=== PATIENT | female | born 1990 | race Caucasian/White ===

== ENCOUNTER → 2019-10-11 07:48 | Outpatient (CLI) | payer BC, SELFPAY ==
--- NOTE | 2019-10-11 07:51 | US_ITS ---
PROCEDURE: US GALLBLADDER CLINICAL INDICATION: VOMITING Vomiting after eating COMPARISON: No exams were available for comparison FINDINGS: Pancreas: Unremarkable/Not well seen Liver: Unremarkable. There is appropriate direction of blood flow within a non dilated portal vein. Right kidney: Unremarkable appearing. No hydronephrosis. Gallbladder: No stones are evident. There is no gallbladder wall thickening. Common duct is normal in diameter. IMPRESSION: Negative gallbladder ultrasound. No stones evident. Dictated by: Ramesh Burnham MD 10/11/2019 09:10 Electronically signed by Ramesh Burnham MD in [place] 10/11/2019 09:10
== END ==
PROVIDERS: PCP Family Medicine; Visit Provider Nurse Practitioner
DX: R11.10 Vomiting, unspecified (principal)
CPT/HCPCS: 76705

== ENCOUNTER 2020-01-20 17:14 | Emergency (ER) | payer BC, SELFPAY ==
[2020-01-20 17:57] VITALS: BP 114/74; PULSE 85; RESP 20; TEMP 37.1; O2SAT 99; BMI 27.4
[2020-01-20 18:08] LABS: UTC Strep Screen (Rapid) Negative (Negative)
[2020-01-20 18:09] LABS: UTC Influenza A Antigen Negative (Negative); UTC Influenza B Antigen Negative (Negative)
--- NOTE | 2020-01-20 18:12 | HMH.EDUTC ---
[facility] [place] Clinical Impression: Sinusitis Qualifiers: Sinusitis location: unspecified location Chronicity: unspecified Qualified Code(s): J32.9 - Chronic sinusitis, unspecified Disposition: Home, Self-Care Condition on Discharge: Good Instructions: Sinusitis, Sinus Headache, DI for Sinusitis Additional Instructions: *Monitor Temp, Over the counter Motrin or Tylenol as directed/as needed Tylenol every 4 hours and Motrin every 6 hours (as long as your family doctor has told you that you can take it) for fever or pain. and straight to ER if unable to lower temp less than 101.0 after medication given *Warm salt water gargles may help to soothe the throat *Throat Lozenges *Warm fluids like tea with honey may help to soothe the throat *Sleep elevated *Humidifier/Vaporizer *Flonase 2 sprays in each nostril daily but be aware that it may take 2-3 days before you notice improvement Take medication as prescribed Your throat swab was sent for culture. Those results are typically sent to your primary care. Be sure to follow up in 2-3 days with your family doctor/primary care physician if no improvement so they can review those result and treat if necessary. If you don?t have a primary care doctor, I recommend you get one but in the mean time, you will have to return to a walk in clinic Follow up IMMEDIATELY for new or worsening symptoms or no Noticeable improvement over the next 48-72 hours. 911 for difficulty breathing or swallowing Prescriptions: predniSONE [Deltasone 10mg tablet] 10 mg PO BID 5 Days #10 tab Transmission Status: Pending to [facility] # [id number] Fluticasone Propionate [Flonase 50mcg nasal spray 16gm] 1 spr NS DAILY #1 bottle Transmission Status: Pending to [facility] # [id number] Azithromycin [Z-Dung 250mg Tab] 250 mg PO DIRECTED #6 tab Transmission Status: Pending to [facility] # [id number] Referrals: Kelly Westbrook [Primary Care Provider] - As needed Time of Disposition: 18:21 Medical Decision Making - Wilian Inquiry Pt receiving controlled substance: No Wilian was queried for this patient: No Vital Signs: 01/20/20 17:57 Temperature 98.7 F Temperature Source Oral Pulse Rate [Right Brachial] 85 Respiratory Rate 20 Blood Pressure [Right Arm] 114/74 Blood Pressure Mean [Right Arm] 87 Blood Pressure Source [Right Arm] Automatic Cuff Blood Pressure Position [Right Arm] Sitting 02 Sat by Pulse Oximetry 99 Oxygen Delivery Method Room Air - Lab Data Lab results reviewed: Yes: I reviewed the patient's lab results. Lab Results 01/20/20 17:49: Influenza Type A Ag Negative, Influenza Type B Ag Negative 01/20/20 17:49: Strep Scn Rapid Clinic Negative Orders (Tests/Meds): ORDERS Category Date Time Status Strep Screen Confirmation Stat Micro 01/20/20 17:49 Received [facility] [place] - General Stated complaint: nausea low grade fever aches Time Seen by Provider: 01/20/20 18:13 Mode of Arrival: Ambulatory Source of Information: Patient Limitations: No Limitations Description of Symptoms (Recalled from Triage Doc. by RN): PATIENT C/O VOMITING, SORE THROAT, CHILLS AND SINUS PRESSURE THAT STARTED THIS AFTERNOON HEENT Symptoms (Recalled from RN notes): Yes Resp Symptoms (Recalled from RN notes): No Skin Symptoms (Recalled from RN notes): No MS Symptoms (Recalled from RN notes): No Functional Status (Recalled from RN notes): WNL - History of Present Illness Provider Complaint: Paitent states that she has been having sinus pain and pressure for over a week and today she was having body aches, chills and nausea States that she feels like she has a sinus infection or the flu States that earlier she had an eppisode of vomiting and thinks it was because of drainage - Related Data Previous Rx's Medication Instructions Recorded Albuterol Sulfate [Albuterol 2.5 mg IH Q4-6H PRN #25 neb 08/25/19 0.083% 2.5mg/3mL neb] Azithromycin [Z-Dung 250mg Tab*] 250 mg PO UD DOSE PK #6 tab 08/25/19 Fluticas
[2020-01-20 18:22] VITALS: BP 114/74; PULSE 85; RESP 20; TEMP 37.1; O2SAT 99
== END 2020-01-20 18:25 | disposition home or self-care (01) ==
PROVIDERS: Emergency Provider Nurse Practitioner; PCP Family Medicine
DX: J32.9 Chronic sinusitis, unspecified (principal); F17.210 Nicotine dependence, cigarettes, uncomplicated
CPT/HCPCS: 87804; 87880; 99202

== ENCOUNTER 2020-05-03 19:23 | Emergency (ER) | payer BC, SELFPAY ==
[2020-05-03 19:33] VITALS: BP 104/78; PULSE 101; RESP 15; TEMP 37.2; O2SAT 99; BMI 26.5
--- NOTE | 2020-05-03 19:38 | HMH.EDUTC ---
[facility] [place] Clinical Impression: Vomiting and diarrhea Disposition: Home, Self-Care Condition on Discharge: Good Instructions: Diarrhea, DI for Nausea -- Adult, Nausea and Vomiting-Adult, Preventing the Spread of Coronavirus Discharge Instructions Additional Instructions: ? Avoid fruit juices, as these do not replace minerals and can actually increase diarrhea. ? Children and adults can use sports drinks to replenish electrolytes. Younger children and infants should use products formulated for children, like oral rehydration solutions. ? Eat food in small amounts and let your stomach recover. ? Get lots of rest. You may feel tired or weak. ? No greasy or fried foods for the next 24-48 hours BRAT diet Bananas Rice Apples and [place] ? Make sure to drink plenty of liquids ? Return if needed ? Straight to ER if any life threatening symptoms ? Zofran as prescribed ? You was given an outpatient order for diarrhea panel, please collect specimen and bring back to outpatient lab then call back to the [facility] or follow up with family doctor for results Follow up with family doctor in the next 48-72 hours if no You was tested for today for COVID19 your test result should be back later this evening, you may call back later this evening to see if your test results are back and the result You was given a handout with instructions for Self Quarantine and Self isolation for while you wait on test results and what to do if they are positive Prescriptions: Ondansetron [Zofran 4mg ODT] 4 mg PO TIDP PRN #10 tab PRN Reason: Vomiting Transmission Status: Pending to [facility] # [id number] Referrals: Kelly Westbrook [Primary Care Provider] - As needed Forms: Work/School Release Time of Disposition: 21:01 Medical Decision Making - Wilian Inquiry Pt receiving controlled substance: No Wilian was queried for this patient: No Vital Signs: 05/03/20 19:33 Temperature 98.9 F Temperature Source Oral Pulse Rate [Right Brachial] 101 H Respiratory Rate 15 Blood Pressure [Right Arm] 104/78 L Blood Pressure Mean [Right Arm] 86 Blood Pressure Source [Right Arm] Automatic Cuff Blood Pressure Position [Right Arm] Sitting 02 Sat by Pulse Oximetry 99 Oxygen Delivery Method Room Air - Lab Data Lab results reviewed: Yes: I reviewed the patient's lab results. Orders (Tests/Meds): ED MEDICATIONS Generic Name Dose Route Start Last Admin Trade Name Freq PRN Reason Stop Dose Admin Sodium Chloride 1,000 mls @ 999 mls/hr 05/03/20 20:00 05/03/20 20:03 Sod Chlor 0.9% 1000ml Bag IV 05/03/20 21:00 999 mls/hr .Q1H1M SADIA Administration Discontinued Medications Generic Name Dose Route Start Last Admin Trade Name Irasema PRN Reason Stop Dose Admin Ondansetron HCl 4 mg 05/03/20 19:39 05/03/20 19:50 Ondansetron 4mg Odt SL 05/03/20 19:40 4 mg ONCE ONE Administration ORDERS Category Date Time Status Covid-19 Nasal PCR ([facility]) Routine Lab 05/03/20 19:48 Received Medical Decision Narrative: Patient states that she is feeling much better after bolus and no vomiting after zofran and able to keep down sprite [facility] [place] HPI - General Stated complaint: MEYERS,V&D,Abd Pain Time Seen by Provider: 05/03/20 19:38 Mode of Arrival: Ambulatory Source of Information: Patient Limitations: No Limitations Description of Symptoms (Recalled from Triage Doc. by RN): PATIENT C/O VOMITING, HEADACHE, NAUSEA AND DIARRHEA X 2-3 DAYS HEENT Symptoms (Recalled from RN notes): Yes Resp Symptoms (Recalled from RN notes): No Skin Symptoms (Recalled from RN notes): No MS Symptoms (Recalled from RN notes): No Functional Status (Recalled from RN notes): WNL - History of Present Illness Provider Complaint: Patient states that she has been not feeling well for the last couple of days and not been able to work States that she has had a headache, body aches, chills, N/V/D States that today she was still having some nausea and vomiting last had diarrhea this morning
[2020-05-03 21:06] VITALS: BP 103/73; PULSE 78; RESP 16; O2SAT 100
[2020-05-03 21:08] LABS: UTC Influenza A Antigen Negative (Negative)
[2020-05-03 21:09] LABS: UTC Influenza B Antigen Negative (Negative)
[2020-05-03 21:10] LABS: UTC Strep Screen (Rapid) Negative (Negative)
[2020-05-03 21:12] VITALS: BP 103/73; PULSE 85; RESP 16; TEMP 37.2; O2SAT 100
== END 2020-05-03 21:15 | disposition home or self-care (01) ==
PROVIDERS: Emergency Provider Nurse Practitioner; PCP Family Medicine
DX: R11.10 Vomiting, unspecified (principal); R19.7 Diarrhea, unspecified; F17.210 Nicotine dependence, cigarettes, uncomplicated
CPT/HCPCS: 87804; 87880; 96365; 99202; U0003

== ENCOUNTER 2020-05-11 21:07 | Emergency (ER) | payer BC, SELFPAY ==
[2020-05-11 21:12] VITALS: BP 110/59; PULSE 70; RESP 16; TEMP 36.8; O2SAT 98; BMI 25.7
--- NOTE | 2020-05-11 21:24 | HMH.EDGENADL ---
ED Disposition Clinical Impression: Lumbar pain Strain of lumbar region Qualifiers: Encounter type: initial encounter Qualified Code(s): S39.012A - Strain of muscle, fascia and tendon of lower back, initial encounter Disposition: Home, Self-Care Condition on Discharge: Good Instructions: DI for Low Back Pain Prescriptions: Gabapentin [Gabapentin 300mg Cap] 300 mg PO BID #10 cap Transmission Status: Pending to [facility] # [id number] Referrals: PCP,No [Non-Staff] - - Critical Care Critical Care Time: No Attestation: On 05/11/20, the high probability of a clinically significant, sudden or life threatening deterioration of the following system(s) required my full and direct attention, intervention and personal management. The time I documented below is in addition to time spent performing reported procedures but includes the following listed in this critical care notation. Medical Decision Making - Medical Records Medical records reviewed: Yes: I reviewed the patient's medical records. - Wilian Inquiry Pt receiving controlled substance: No Vital Signs: 05/11/20 21:12 Temperature 98.2 F Temperature Source Oral Pulse Rate [Left] 70 Respiratory Rate 16 Blood Pressure [Left Arm] 110/59 L Blood Pressure Mean [Left Arm] 76 Blood Pressure Source [Left Arm] Automatic Cuff Blood Pressure Position [Left Arm] Supine 02 Sat by Pulse Oximetry 98 Oxygen Delivery Method Room Air Orders (Tests/Meds): ED MEDICATIONS Discontinued Medications Generic Name Dose Route Start Last Admin Trade Name Freq PRN Reason Stop Dose Admin Gabapentin 300 mg 05/11/20 21:23 05/11/20 21:28 Gabapentin 300mg Capsule PO 05/11/20 21:24 300 mg ONCE ONE Administration Hydromorphone HCl 1 mg 05/11/20 21:21 05/11/20 21:28 Hydromorphone 2mg/Ml Syringe IM 05/11/20 21:22 1 mg ONCE ONE Administration Medical Decision Narrative: At present time, the precise etiology of the patient's current symptom complex is unclear. The patient is awake, alert, he is hemodynamically stable without signs of toxicity. Given history and physical exam findings, I doubt acute [employer]VIRONMENT[employer] ENGINEERING [employer] catastrophe (including but not limited to mass, infection, infarction, or hemorrhage) secondary to the time course, the patient's well appearance, their essentially normal vital signs, and the nonfocal nature of the patient's neurovascular examination. Additionally, the patient has no red flag- type symptoms (such as urinary/fecal incontinence/difficulty or saddle anesthesia) that would suggest these Cauda Equina, Spinal epidural abscess, or these types of pathologies. I doubt acute intrathoracic or intra-abdominal catastrophe such as aortic dissection or abdominal aortic aneurysm secondary to the previously-mentioned factors as well as the patient's nonfocal neurovascular examination. Similarly, I doubt tract pathology (i.e., nephrolithiasis or ureterolithiasis, renal colic, etc) secondary to the fact that I feel that a musculoskeletal-type etiology is more likely given the patient's characteristic history/physical examination findings. However, the remote but distinct possibility of occult pathology was explained in detail to the patient, who verbalized excellent understanding. All the patient's questions were answered to their satisfaction and they verbalized excellent understanding of the possible diagnoses/need for close follow up. Rectal exam was also negative at bedside. Patient given IM hydromorphone as well as gabapentin. DC'd w/ gabapentin script. To follow-up with her primary care doctor. General Adult HPI - General Chief complaint: Back Pain/Injury Stated complaint: back pain Time Seen by Provider: 05/11/20 21:24 Source of Information: Patient, Significant Other Limitations: No Limitations - History of Present Illness HPI narrative: Presenting for back pain. Patient has a history of musculoskeletal back pain and neuropathic pain. Patient had jaqui
[2020-05-11 23:45] VITALS: BP 116/54; PULSE 68; RESP 14; TEMP 36.8; O2SAT 98
== END 2020-05-11 23:49 | disposition home or self-care (01) ==
PROVIDERS: Emergency Provider Emergency Medicine; PCP Family Medicine
DX: S39.012A Strain of muscle, fascia and tendon of lower back, initial encounter (principal); Z88.5 Allergy status to narcotic agent; F17.210 Nicotine dependence, cigarettes, uncomplicated
CPT/HCPCS: 96372; 99281

== ENCOUNTER 2021-01-23 17:43 | Emergency (ER) | payer BC, SELFPAY ==
[2021-01-23 17:45] VITALS: BP 112/75; PULSE 81; RESP 20; TEMP 36.7; O2SAT 97; BMI 29.2
--- NOTE | 2021-01-23 18:00 | HMH.EDUTC ---
[facility] – [place] Dis[place] Clinical Impression: Anxiety attack Disposition: Home, Self-Care Condition on Discharge: Good Instructions: DI for Panic Disorder, Anxiety and Panic Attacks (Alternative Therapy), Hydroxyzine Additional Instructions: Take medication as your Family Doctor has prescribed it Follow up with your Family Doctor if no improvement or any worsening of symptoms Return if needed When you feel attack coming on sit quietly by yourself and think of something that helps to calm you Straight to ER if any life threatening symptoms Referrals: Kelly Westbrook [Primary Care Provider] - As needed Forms: Work/School Release Time of Disposition: 18:43 Medical Decision Making - Wilian Inquiry Pt receiving controlled substance: No Wilian was queried for this patient: No Vital Signs: 01/23/21 17:45 Temperature 98.0 F Temperature Source Temporal Artery Scan Pulse Rate [Right Brachial] 81 Respiratory Rate 20 Blood Pressure [Right Arm] 112/75 Blood Pressure Mean [Right Arm] 87 Blood Pressure Source [Right Arm] Automatic Cuff Blood Pressure Position [Right Arm] Sitting 02 Sat by Pulse Oximetry 97 Oxygen Delivery Method Room Air Orders (Tests/Meds): ED MEDICATIONS Discontinued Medications Generic Name Dose Route Start Last Admin Trade Name Freq PRN Reason Stop Dose Admin Hydroxyzine Pamoate 25 mg 01/23/21 18:03 01/23/21 18:12 Hydroxyzine Pamoate 25mg Capsule PO 01/23/21 18:04 25 mg ONCE ONE Administration Medical Decision Narrative: Discussed with patient about medication and importance of taking it as prescribed to help with the treatment of panic attacks and if taken correctly can help and patient agreed States that she was afraid of taking it because she was not familiar with it but willing to take it in the [facility] Patient states that she feels much better now no longer feeling anxious states that she feels much better after medication [facility] [place] HPI - General Stated complaint: Panic attack Time Seen by Provider: 01/23/21 18:00 Mode of Arrival: Ambulatory Source of Information: Patient Limitations: No Limitations Description of Symptoms (Recalled from Triage Doc. by RN): PATIENT STATES SHE HAD A PANIC ATTACK WHILE GETTING READY FOR WORK APPROX 1730 TODAY. STATES SHE IS STILL SHAKY FROM IT HEENT Symptoms (Recalled from RN notes): No Resp Symptoms (Recalled from RN notes): No Skin Symptoms (Recalled from RN notes): No MS Symptoms (Recalled from RN notes): No Functional Status (Recalled from RN notes): WNL - History of Present Illness Provider Complaint: Patient states that she has been having panic attacks for the last week or so and her PCP recently prescribed her some medication for it but she hasnt taken any of it because she was afraid to She wasnt familiar with the medication States that today she was getting ready for work and she felt a panic attack coming on but she still did not take any medication States that she called work and they recommended that she come up here States that when it hit she was crying uncontrollably and felt like she could not calm down and control her breathing States that she feels better now but still feels like she is going to have one - Related Data Home Medications Medication Instructions Recorded Confirmed buPROPion HCL [Wellbutrin XL] 150 mg PO DAILY 01/23/21 01/23/21 buPROPion HCL [Wellbutrin XL] 300 mg PO DAILY 01/23/21 01/23/21 hydrOXYzine HCL [Hydroxyzine HCl] 25 mg PO TIDP PRN 01/23/21 01/23/21 Allergies Allergy/AdvReac Type Severity Reaction Status Date / Time ethinyl estradiol Allergy Unknown MOOD Verified 12/21/18 22:03 [From SPRINTEC (28)] CHANGES hydrocodone [HYDROCODONE] Allergy Unknown I-HIVES Verified 12/21/18 22:03 norgestimate Allergy Unknown MOOD Verified 12/21/18 22:03 [From SPRINTEC (28)] CHANGES - Worker's Comp Is this a Worker's Comp case?: No [facility] History - Hepatitis A Screen Drug use history?: No High risk sexu
[2021-01-23 18:45] VITALS: BP 112/75; PULSE 81; RESP 20; TEMP 36.7; O2SAT 97
== END 2021-01-23 18:49 | disposition home or self-care (01) ==
PROVIDERS: Emergency Provider Nurse Practitioner; PCP Family Medicine
DX: F41.0 Panic disorder [episodic paroxysmal anxiety] (principal)
CPT/HCPCS: 99202; G0463

== ENCOUNTER → 2021-09-06 07:56 | Outpatient (CLI) | payer BC, SELFPAY ==
--- NOTE | 2021-09-06 08:13 | US_ITS ---
FINAL REPORT CLINICAL HISTORY: fibroid uterus FINDINGS: Transvaginal sonographic images of the pelvis were obtained. The uterus is enlarged measuring 11.9 x 8.8 x 9.4 cm. The endometrium is unable to be identified. There is a heterogeneous mass within the uterus that measures 8.2 x 6.3 x 7.4 cm and is consistent with a uterine fibroid. The right ovary measures 2.6 cm in length and left ovary measures 3.7 cm in length. Normal blood flow seen to the ovaries. There is a 2.2 cm septated cyst in the left ovary. There is no evidence of free fluid. IMPRESSION: Uterine fibroid as described. Left ovarian cyst as described. Recommend follow-up ultrasound in 8-10 weeks. Reviewed, Interpreted and Dictated by Duke Domingo III, MD Transcribed by Ceci Magaña Authenticated by Duke Domingo III, MD on 09/06/2021 11:04:42 AM [facility]
== END ==
PROVIDERS: PCP Family Medicine; Visit Provider Nurse Practitioner Obstetrics & Gynecology
DX: D25.9 Leiomyoma of uterus, unspecified (principal)
CPT/HCPCS: 76830

== ENCOUNTER 2021-11-09 17:55 | Emergency (ER) | payer BC, SELFPAY ==
[2021-11-09 18:00] VITALS: BP 118/75; PULSE 83; RESP 19; TEMP 36.6; O2SAT 98; BMI 24.0
--- NOTE | 2021-11-09 18:26 | HMH.EDUTC ---
[facility] [place] Disposition Clinical Impression: Allergic reaction Disposition: Home, Self-Care Condition on Discharge: Good Instructions: DI for Eye Allergic Reaction Additional Instructions: Can take Zantac and Benadryl for anti-histamines Prescriptions: methylPREDNISolone [Medrol 4mg tab] 4 mg PO DIRECTED #21 tab Transmission Status: Pending to [id number] Olopatadine HCl [Pataday] 1 drp OP BID 30 Days #1 ml Transmission Status: Pending to [id number] Referrals: Kelly Westbrook [Primary Care Provider] - Time of Disposition: 18:37 Medical Decision Making - Wilian Inquiry Pt receiving controlled substance: No [facility] [place] HPI - General Stated complaint: Allergic reaction,itchiing Time Seen by Provider: 11/09/21 18:27 - History of Present Illness Provider Complaint: Patient woke up yesterday with swelling to her face. Eyes are itchy. No new exposures. Onset (ago): day(s) (1) Location: face Relieving factors: none Exacerbating factors: none Associated symptoms: denies other symptoms Treatments prior to arrival: none - Related Data Home Medications Medication Instructions Recorded Confirmed hydrOXYzine HCL [Hydroxyzine HCl] 25 mg PO TIDP PRN 01/23/21 09/13/21 diclofenac sodium 75 mg ea PO 08/26/21 09/13/21 tablet,delayed release gabapentin 300 mg capsule 300 mg PO cap 08/26/21 09/13/21 ibuprofen 800 mg tablet 800 mg PO Q8H 08/26/21 09/13/21 Previous Rx's Medication Instructions Recorded Olopatadine HCl [Pataday] 1 drp OP BID 30 Days #1 ml 11/09/21 methylPREDNISolone [Medrol 4mg 4 mg PO DIRECTED #21 tab 11/09/21 tab] Allergies Allergy/AdvReac Type Severity Reaction Status Date / Time ethinyl estradiol Allergy Unknown MOOD Verified 09/13/21 12:06 [From SPRINTEC (28)] CHANGES hydrocodone [HYDROCODONE] Allergy Unknown I-HIVES Verified 09/13/21 12:06 norgestimate Allergy Unknown MOOD Verified 09/13/21 12:06 [From SPRINTEC (28)] CHANGES [facility] History - Hepatitis A Screen Attestation statement:: This patient has been screened for Hepatitis A risk factors. I have reviewed the patient's past medical history: Yes Medical History: Denies:: Cancer, Diabetes Mellitus Type 1, Diabetes Mellitus Type 2, MRSA Other Surgeries: Yes: , Tubal Ligation, Other Amputation: No Fractures: Yes Comment: repair of nasal fx 07/02. 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 ROS Obtained: Yes All systems reviewed & no additional complaints - Eyes Eyes: Reports itchy eyes Physical Exam - General General appearance: alert, in no apparent distress - Head Head exam: normocephalic - Eye Eye exam: Present: PERRL, periorbital swelling - Chest Chest inspection: Present: normal inspection, symmetric chest wall rise - Respiratory Respiratory exam: Present: normal lung sounds bilaterally - Cardiovascular Cardiovascular exam: Present: regular rate, normal rhythm - Neurological Exam Neurological exam: Present: alert, oriented X3 - Psychiatric Psychiatric exam: Present: normal affect, normal mood - Skin Skin exam: Present: other (swelling )
[2021-11-09 18:42] VITALS: BP 118/75; PULSE 83; RESP 19; TEMP 36.6; O2SAT 98
== END 2021-11-09 18:52 | disposition home or self-care (01) ==
PROVIDERS: Emergency Provider Physician Assistant; PCP Family Medicine
DX: T78.40XA Allergy, unspecified, initial encounter (principal); F17.210 Nicotine dependence, cigarettes, uncomplicated
CPT/HCPCS: 96372; 99213; G0463; J1040

== ENCOUNTER 2021-12-07 21:03 | Emergency (ER) | payer BC, SELFPAY ==
[2021-12-07 21:04] VITALS: BP 107/79; PULSE 91; RESP 16; TEMP 37.1; O2SAT 98; BMI 23.1
[2021-12-07 21:10] VITALS: BMI 23.1
--- NOTE | 2021-12-07 21:13 | HMH.EDGENADL ---
ED Disposition Condition on Discharge: Good - Critical Care Critical Care Time: No <Guillermo Ospina - Last Filed: 12/07/21 21:13> Condition on Discharge: Good - Critical Care Critical Care Time: No <Orin Allen - Last Filed: 12/08/21 02:32> Clinical Impression: Nausea & vomiting Qualifiers: Vomiting type: unspecified Qualified Code(s): R11.2 - Nausea with vomiting, unspecified Abdominal pain Qualifiers: Abdominal location: generalized Qualified Code(s): R10.84 - Generalized abdominal pain Disposition: Home, Self-Care Instructions: Uterine Fibroids, DI for Acute Abdominal Pain Additional Instructions: Please follow up with your primary care physician in 2-3 days for further management. Discuss with your primary care team regarding your fibroid, it has increased in size and will require further workup. Please take tylenol and ibuprofen for pain control. Please also utilize the zofran as prescribed for nausea and vomiting. Please return if you are unable to eat and drink, unbale to have bowel movement or any other concerns. Prescriptions: Ondansetron [Zofran 4mg ODT] 4 mg PO BIDP PRN #14 tab PRN Reason: Nausea Transmission Status: Received by [id number] Referrals: Kelly Westbrook [Primary Care Provider] - Attestation: On 12/07/21, the high probability of a clinically significant, sudden or life threatening deterioration of the following system(s) required my full and direct attention, intervention and personal management. The time I documented below is in addition to time spent performing reported procedures but includes the following listed in this critical care notation. Medical Decision Making - Medical Records Medical records reviewed: Yes: I reviewed the patient's medical records. - Wilian Inquiry Pt receiving controlled substance: No <Guillermo Ospina - Last Filed: 12/07/21 21:13> - Lab Data Result diagrams: 12/07/21 21:28 12/07/21 21:28 <Orin Allen - Last Filed: 12/08/21 02:32> Vital Signs: 12/07/21 21:04 12/07/21 23:24 Temperature 98.8 F 98.2 F Temperature Source Oral Oral Pulse Rate 78 Pulse Rate [Left Radial] 91 H Respiratory Rate 16 18 Blood Pressure 107/79 L Blood Pressure [Right Arm] 107/79 L Blood Pressure Mean [Right Arm] 88 Blood Pressure Source Automatic Cuff Blood Pressure Source [Right Arm] Automatic Cuff Blood Pressure Position Sitting Blood Pressure Position [Right Arm] Sitting 02 Sat by Pulse Oximetry 98 Oxygen Delivery Method Room Air Room Air - Lab Data Lab Results 12/07/21 21:19: Urine Color Yellow, Urine Appearance Clear, Urine pH 5.0, Ur Specific [place] >= 1.030, Urine Protein Negative, Urine Glucose (UA) Negative, Urine Ketones Trace, Urine Blood Negative, Urine Nitrate Negative, Urine Bilirubin Negative, Urine Urobilinogen 0.2, Ur Leukocyte Esterase Negative, Ur Squamous Epith Cells 10-20, Amorphous Sediment Trace, Urine Mucus 4+ 12/07/21 21:28: WBC 7.7, RBC 4.53, Hgb 14.1, Hct 41.3, MCV 91.0, MCH 31.1, MCHC 34.1, RDW 13.2, Plt Count 296, MPV 8.7, Neut % (Auto) 68.1, Lymph % (Auto) 22.8, [place] % (Auto) 5.9, Eos % (Auto) 1.1, Baso % (Auto) 2.0, Neut # (Auto) 5.3, Lymph # (Auto) 1.8, [place] # (Auto) 0.5, Eos # (Auto) 0.1, Baso # (Auto) 0.2 12/07/21 21:28: Sodium 140, Potassium 3.6, Chloride 103, Carbon Dioxide 28, Anion Gap 12.6, BUN 12, Creatinine 0.70, Estimated Creat Clear 111, Estimated GFR 96, Est GFR ( Amer) 117, Glucose 87, Calcium 9.3, Total Bilirubin 0.4, AST 18, ALT 12, Alkaline Phosphatase 62, Total Protein 7.2, Albumin 4.6, Globulin 2.6, Albumin/Globulin Ratio 1.8 Orders (Tests/Meds): ED MEDICATIONS Discontinued Medications Generic Name Dose Route Start Last Admin Trade Name Freq PRN Reason Stop Dose Admin Dicyclomine HCl 20 mg 12/07/21 21:14 12/07/21 21:18 Dicyclomine 10mg Capsule PO 12/07/21 21:15 20 mg ONCE ONE Administration Sodium Chloride 1,000 mls @ 999 mls/hr 12/07/21 21:15 05
[2021-12-07 21:23] LABS: Microscopic, Urine URINE MICROSCOPIC (MICROSCOPIC)
[2021-12-07 21:25] LABS: Appearance,Urine CLEAR (Clear); Blood, Urine Negative (Negative); Color,Urine YELLOW (Yellow); Glucose,Urine (UA) Negative (Negative); Ketones,Urine TRACE (Negative); Leukocyte Esterase,Urine Negative (Negative); Nitrate,Urine Negative (Negative); Protein,Urine Negative (Negative); Specific Gravity, Urine >= 1.030 (1.005-1.030); Urobilinogen,Urine 0.2 EU/dl (0.2)
[2021-12-07 21:28] LABS: Bilirubin,Urine Negative (Negative)
[2021-12-07 21:29] LABS: Amorphous Sediment,Urine Trace /lpf; Mucus,Urine 4+ /lpf
--- NOTE | 2021-12-07 21:29 | CT_ITS ---
PROCEDURE INFORMATION: Exam: CT Abdomen And Pelvis With Contrast Exam date and time: 12/07/2021 9:38 PM Age: 31 years old Clinical indication: Abdominal pain; Localized; Right lower quadrant (rlq); Prior surgery; Surgery type: Tubal; Patient HX: Rlq pain; Additional info: N/v, abd pain TECHNIQUE: Imaging protocol: Computed tomography of the abdomen and pelvis with contrast. Radiation optimization: All CT scans at this facility use at least one of these dose optimization techniques: automated exposure control; mA and/or kV adjustment per patient size (includes targeted exams where dose is matched to clinical indication); or iterative reconstruction. Contrast material: ISOVUE; Contrast volume: 75 ml; Contrast route: IV; COMPARISON: CT ABDOMEN PELVIS WO CON 09/26/2019 12:25 PM FINDINGS: Lungs: The visualized lung bases are clear. Pleural spaces: There are no pleural effusions. Heart: The visualized portions of the heart are unremarkable. There is no evidence of pericardial fluid collections. Diaphragm: A small hiatal hernia is present. Liver: There is diffuse decrease in hepatic parenchymal density consistent with fatty infiltration. Gallbladder and bile ducts: The gallbladder is normal. Pancreas: The pancreas is normal. Spleen: The spleen is normal. An accessory splenule is present. Adrenal glands: The adrenal glands are normal. Kidneys and ureters: The kidneys are normal. Stomach and bowel: The stomach is normal. The duodenum is unremarkable. There is mildly excessive colonic stool content. The colon is otherwise within range of normal. Unopacified loops of small bowel are within range of normal. Appendix: A normal appendix is identified. Intraperitoneal space: There is a small amount of free fluid present. No evidence of intraperitoneal free air. Vasculature: No abdominal aortic aneurysm. Lymph nodes: No enlarged lymph nodes. Urinary bladder: The bladder is decompressed. Reproductive: Bilateral tubal ligation clips are re-identified. As before, the uterus is bulky and there is a large rounded heterogeneous mass within the uterine fundus. This mass measures approximately 7.8 x 7.4 by 8.1 cm. The findings most likely reflect leiomyoma. Cannot entirely exclude leiomyosarcoma. Correlate clinically. There are mildly prominent periuterine vessels, greater on the left. The right ovary is normal. The left ovary is normal. When compared with prior ultrasound of exam of 11/14/2016, the fundal uterine mass measured 3.3 x 2.5 at that time indicating increase in size. Bones/joints: There is no evidence of acute fracture. Soft tissues: No significant soft tissue edema. IMPRESSION: 1. Enlarged rounded heterogeneous uterine mass which most likely reflects leiomyoma. Cannot entirely exclude leiomyosarcoma. This is increased since 2017. Mildly prominent periuterine vasculature, greater on the left, could reflect pelvic congestion syndrome/pelvic varices. Recommend gynecological consultation and additional evaluation. 2. Trace amount of free fluid in the pelvis. 3. Fatty hepatic infiltration. 4. Small hiatal hernia. 5. Mild constipation.
[2021-12-07 21:40] LABS: Basophils # 0.2 K/mm3 (0-0.2); Eosinophils # 0.1 K/mm3 (0.0-0.4); Eosinophils % 1.1 % (0.1-12.0); Hematocrit 41.3 % (37.0-47.0); Hemoglobin 14.1 g/dL (12.2-16.2); Lymphocytes # 1.8 K/mm3 (0.7-4.5); Lymphocytes % 22.8 % (10-50); Mean Corpuscular HGB Conc 34.1 g/dL (31.8-35.4); Mean Corpuscular Hemoglobin 31.1 pg (27.0-31.2); Mean Platelet Volume 8.7 fl (7.4-10.4); Monocytes # 0.5 K/mm3 (0.1-1.0); Monocytes % 5.9 % (1.7-9.3); Neutrophils # 5.3 K/mm3 (1.8-7.8); Neutrophils % 68.1 % (37.0-80.0); Platelet Count 296 K/mm3 (142-424); Red Blood Count 4.53 M/mm3 (4.20-5.40); Red Cell Distribution Width 13.2 % (11.5-17.5); White Blood Count 7.7 K/mm3 (4.8-10.8)
[2021-12-07 21:44] LABS: Alanine Aminotransferase 12 U/L (12-78); Albumin Level 4.6 g/dl (3.5-5.0); Albumin/Globulin Ratio 1.8 (1.1-1.8); Alkaline Phosphatase 62 U/L (38-126); Anion Gap 12.6 mEq/L (5-15); Aspartate Amino Transferase 18 U/L (14-36); Bilirubin,Total 0.4 mg/dl (0.2-1.3); Blood Urea Nitrogen 12 mg/dl (7-17); Calcium 9.3 mg/dl (8.4-10.2); Carbon Dioxide 28 mmol/L (22.0-30.0); Chloride 103 mmol/L (98-107); Creatinine Clearance Estimated 111 mL/min (50-200); Estimated Glomerular Filt Rate 96 ml/min (>60); GFR (African American) 117 ML/MIN (>60); Globulin 2.6 g/dL (1.3-3.2); Glucose 87 mg/dl (74-100); Potassium 3.6 mmoL/L (3.5-5.1); Sodium 140 mmol/L (136-145); Total Protein,Serum 7.2 g/dl (6.3-8.2)
[2021-12-07 23:24] VITALS: BP 107/79; PULSE 78; RESP 18; TEMP 36.8; O2SAT 99
== END 2021-12-07 23:27 | disposition home or self-care (01) ==
PROVIDERS: Emergency Medicine; Emergency Provider Student in an Organized Health Care Education/Training Program; PCP Family Medicine
DX: R10.84 Generalized abdominal pain (principal); R11.2 Nausea with vomiting, unspecified; F17.210 Nicotine dependence, cigarettes, uncomplicated
CPT/HCPCS: 74177; 80053; 81001; 85025; 96361; 96374; 96375; J2405; Q9967

== ENCOUNTER → 2022-03-24 11:27 | Outpatient (CLI) | payer BC, SELFPAY ==
[2022-03-24 12:24] LABS: Basophils # 0.1 K/mm3 (0-0.2); Basophils % 0.7 % (0.1-2.0); Eosinophils # 0.1 K/mm3 (0.0-0.4); Eosinophils % 1.6 % (0.1-12.0); Hematocrit 43.3 % (37.0-47.0); Hemoglobin 13.3 g/dL (12.2-16.2); Lymphocytes # 2.2 K/mm3 (0.7-4.5); Lymphocytes % 27.3 % (10-50); Mean Corpuscular HGB Conc 30.7 g/dL (31.8-35.4); Mean Corpuscular Hemoglobin 29.5 pg (27.0-31.2); Mean Corpuscular Volume 96.2 fl (81-99); Mean Platelet Volume 8.9 fl (7.4-10.4); Monocytes # 0.4 K/mm3 (0.1-1.0); Monocytes % 5.3 % (1.7-9.3); Neutrophils # 5.1 K/mm3 (1.8-7.8); Neutrophils % 65.1 % (37.0-80.0); Platelet Count 303 K/mm3 (142-424); White Blood Count 7.9 K/mm3 (4.8-10.8)
[2022-03-24 14:13] LABS: Chloride 103 mmol/L (98-107)
[2022-03-24 14:14] LABS: Potassium 3.9 mmoL/L (3.5-5.1); Sodium 140 mmol/L (136-145)
[2022-03-24 14:16] LABS: Alanine Aminotransferase 7 U/L (12-78); Alkaline Phosphatase 56 U/L (38-126); Aspartate Amino Transferase 19 U/L (14-36); Bilirubin,Total 0.3 mg/dl (0.2-1.3); Blood Urea Nitrogen 10 mg/dl (7-17); Estimated Glomerular Filt Rate 82 ml/min (>60); GFR (African American) 99 ML/MIN (>60)
[2022-03-24 14:17] LABS: Albumin Level 4.6 g/dl (3.5-5.0); Albumin/Globulin Ratio 1.9 (1.1-1.8); Anion Gap 10.9 mEq/L (5-15); Calcium 9.6 mg/dl (8.4-10.2); Carbon Dioxide 30 mmol/L (22.0-30.0); Globulin 2.4 g/dL (1.3-3.2); Glucose 73 mg/dl (74-100)
== END ==
PROVIDERS: PCP Family Medicine; Visit Provider Nurse Practitioner Obstetrics & Gynecology
DX: Z01.812 Encounter for preprocedural laboratory examination (principal); Z20.822 Contact with and (suspected) exposure to COVID-19; N92.0 Excessive and frequent menstruation with regular cycle
CPT/HCPCS: 36415; 80053; 85025; C9803; U0003; U0005

== ENCOUNTER 2022-03-26 10:50 | Inpatient (IN) | payer BC, SELFPAY ==
[2022-03-24 14:46] VITALS: BMI 23.1
[2022-03-25 12:56] LABS: HCG Qualitative, Serum Negative (Negative)
[2022-03-26] VITALS (26 sets, daily range): BP systolic 91–129; BP diastolic 44–84; PULSE 51–83; RESP 14–18; TEMP 36.2–36.8; O2SAT 95–100
[2022-03-26 06:51] LABS: Coronavirus 19, PCR Not Detected (NotDetected); Influenza A, PCR Not Detected (NotDetected); Influenza B, PCR Not Detected (NotDetected)
[2022-03-26 06:55] LABS: Urine Pregnancy, HCG Qual. Negative (Negative)
--- NOTE | 2022-03-26 08:34 | P.PN_ITS ---
[facility] Medical History (Updated 03/26/22 @ 08:35 by Alex Anderson CRNA) Anxiety and depression Asthma History of fracture of nasal bone Nasal fracture Surgical History History of History of tubal ligation Family History Other No significant family history Social History (Updated 03/24/22 @ 14:52 by Charley Martines RN) Smoking Status: Former smoker alcohol intake: never substance use type: denies use current occupational status: other [employer] Anesthesia Checklist Patient Identification Patient Identification: Arm Band Structural Data Admitted From: Home Planned Operative Procedure/s: Total Abdominal Hysterectomy, BSO, possible Appendectomy Consent for Planned Operative Procedure(s) Verified: Yes Verified Documents: Surgical Consent and History and Physical NPO Status Verified Time NPO: 00:00 Additional verifications Anesthesia Reactions: Yes (nausea) Hx Blood Transfusions: No Blood Transfusion Reaction: No Airway Assessment C-Spine Mobility Assessed: Yes (mp1) TMJ Mobility Assessed: Yes Dentition: Good Dentition Neurological Assessment Level of Consciousness: Awake and Alert Anesthesia Plan Anesthesia Risk discussed: Yes Anesthesia Plan: Verified ASA Class: II Anesthesia Type: General w/block (Bilateral TAP Block)
--- NOTE | 2022-03-26 11:14 | EXP.OP.NOTE ---
Date of procedure: 03/26/22 Pre-op Diagnosis:: Pelvic pain, fibroid uterus Post-op Diagnosis:: Pelvic pain, fibroid uterus Procedure performed:: Total abdominal hysterectomy, bilateral salpingectomy Surgeon:: Mike Armendariz MD Cryolite Recovery Operator(s):: Dr. Krishnamurthy [employer] OFFICER:: Other (Sandeep Huggins) Anesthesia: GETA Estimated blood loss (mL): 250 Clinical Note:: She is a 32-year-old lady who complains of extremely heavy periods. An ultrasound showed that she had an 8 cm posterior fibroid. She has had nausea vomiting and pain. She has lost about 30 pounds as a result of this. She has had other work-ups done that have not come to any conclusion. Operative findings:: She had a retroverted retroflexed uterus that had an 8 cm fibroid. It was about the size of a baseball. The ovaries and tubes appeared normal. The tubes had previously been ligated. The pelvis appeared normal. Operative note:: She was taken the operating room where general anesthesia was found be adequate. She is prepped draped normal sterile fashion in the supine position. A Sands catheter is in the bladder. A Pfannenstiel incision was made through the old scar and carried through to the underlying layer of fascia with cautery. The fascia was opened midline with cautery and extended laterally using Bradford scissors. Kurtis clamps were applied to the superior aspect of the fascial incision which was tented up and the underlying rectus muscles dissected off using cautery. The Kurtis clamps were then applied to the inferior aspect of the fascia incision which in a similar fashion was tented up and the underlying rectus muscle dissected off using cautery. The rectus muscles were then the midline, the peritoneum identified tented up and entered sharply with Metzenbaum scissors. This incision was then extended superiorly and inferiorly with good visualization of the inferior bladder and bowel underneath. An O'Kashif-O'Jon retractor was then inserted into the abdominal cavity and the bowel was packed away with warm moist packs. The uterine cornua were then grasped with large Cynthia clamps. The left round ligament was grasped, suture-ligated and cut. The anterior peritoneum and bladder was taken down both sharply and bluntly. The posterior aspect of the broad ligament was then fenestrated with my finger and then clamped cut and doubly suture-ligated. The left uterine artery was then clamped cut and suture-ligated. We then took down the cardinal ligaments clamping cutting and tying as we went with straight Gisela clamps. We then turned our attention to the right side where the right round ligament was grasped and suture-ligated. This was then cut and the rest of the bladder was taken down anteriorly. We then fenestrated the posterior aspect of the broad ligament with my finger. This isolated the utero-ovarian ligament and this was clamped cut and doubly suture-ligated. We then isolated the uterine arteries on the right side and using curved Gisela clamp we clamped cut and suture-ligated these. Then using straight Gisela clamps I took down the cardinal and uterosacral ligaments on the right side. I then elected to amputate the fundus of the uterus from the cervix. This allowed us easier access. We then clamped across the vaginal fornices with curved Gisela clamps and amputated the cervix from the vaginal vault. The vaginal vault was then closed using running 0 Vicryl suture in a locked fashion. We then rinsed the pelvis well. Hemostasis was assured. We then remove the fallopian tubes using cautery. These were sent to pathology. I elected to suture the ovarian pedicles to the round ligament to keep them out of the pelvis and to prevent ovarian torsion in the future. I did this with 2-0 Vicryl suture. I then elected to close the posterior peritoneum overlying the vaginal vault. After once again assuring hemostasis the pelvis was rinsed well with warm saline. I wrapped the right ovary and bin
--- NOTE | 2022-03-26 11:25 | EXP.HP ---
History of Present Illness *Admission Date: 03/26/22 *Reason for visit:: Pelvic pain, menorrhagia, fibroid uterus, nausea and vomiting *History of present illness: She is a 32-year-old lady who complains of nausea and vomiting and has lost about 30 pounds recently. She had a CT scan as well as ultrasound that were essentially normal except for the fact that she had an 8 cm fibroid uterus. As result of this she is offered total abdominal hysterectomy and bilateral salpingectomy. [facility] Medical History Anxiety and depression Asthma History of fracture of nasal bone Nasal fracture Surgical History History of History of tubal ligation Family History No significant family history Social History Smoking Status: Former smoker alcohol intake: never substance use type: denies use current occupational status: other Travel in the last 8 weeks: None Review of Systems Review of Systems Review of systems:: pertinent systems reviewed and negative unless documented below Meds Home Medications and Allergies Home Medications Medication Instructions Recorded Confirmed Type gabapentin 300 mg capsule 300 mg PO DAILY Pain 08/26/21 03/26/22 History bupropion HCl 300 mg 24 hr tablet, 300 mg PO DAILY Depression 03/24/22 03/26/22 History extended release hydroxyzine HCl 25 mg tablet 25 mg PO TIDP PRN Anxiety 03/24/22 03/26/22 History ondansetron 4 mg disintegrating 4 mg PO TIDP PRN Nausea 03/24/22 03/26/22 History tablet New Prescriptions to Start Prescriptions: Allergies Allergy/AdvReac Type Severity Reaction Status Date / Time ethinyl estradiol Allergy Unknown MOOD Verified 03/26/22 09:10 [From SPRINTEC (28)] CHANGES hydrocodone [HYDROCODONE] Allergy Unknown I-HIVES Verified 03/26/22 09:10 norgestimate Allergy Unknown MOOD Verified 03/26/22 09:10 [From SPRINTEC (28)] CHANGES Exam Data for Last 24 hours Vital signs and Labs for Last 24 Hours: Temp Pulse Resp BP Pulse Ox 97.3 F L 62 18 109/76 L 98 03/26/22 06:24 03/26/22 06:24 03/26/22 06:24 03/26/22 06:24 03/26/22 06:24 Laboratory Results - last 24 hr 03/24/22 11:53: Serum HCG, Qual Negative 03/26/22 06:30: Urine HCG, Qual Negative 03/26/22 06:45: SARS-CoV-2 (PCR) Not detected, Influenza A Untype (PCR) Not detected, Influenza Type B (PCR) Not detected I & O for Last 24 hours: Intake & Output 03/23/22 03/24/22 03/25/22 03/26/22 11:59 11:59 11:59 11:59 Weight 135 lb Constitutional Constitutional: no acute distress *Routine HEENT Exam Head: Present normocephalic Eye: Present EOMI and PERRL ENT: Present mucous membranes moist *Routine Neck Exam Neck: Present supple and full ROM *Routine Respiratory Exam Respiratory: Absent accessory muscle use (good air entry bilaterally), wheezes or crackles *Routine Cardiovascular Exam Cardiovascular: Present RRR; Absent murmur *Routine Abdominal Exam Abdominal: Present soft and normoactive bowel sounds; Absent tenderness, rebound, guarding or mass *Routine Rectal Exam Rectal:: deferred *Routine Genitalia Exam Genitalia:: deferred *Routine Extremities Exam Extremities: Present full ROM; Absent cyanosis, edema or calf tenderness *Routine Skin Exam Skin: Present intact (good color) *Routine Neurological Exam Neurological: Present alert and oriented X3 Routine Psychiatric Exam Psychiatric: Present normal affect Detailed Rectal Exam Patient deferred: visual exam and digital exam Detailed Exam Patient deferred: external exam, groin exam and perineal exam H&P: Result Impressions She has a large fibroid uterus and we have elected to perform a total abdominal hysterectomy and bilateral salpingectomy. Assessment and Plan *Assessment and plan (1) Nausea & vomi
--- NOTE | 2022-03-26 12:03 | SUR.PHASEI ---
1156- detailed report called to martha dutton in ob. 1158- pt left in stable condition with nato in pt room by martha aleman and martha salinas
--- NOTE | 2022-03-26 12:05 | PC.NURSE ---
PATIENT ARRIVED TO FLOOR- POC EXPLAINED. PT V/U. PT REPORTS ITCHING AND PAIN. DRESSING EXAMINED- SATURATED SEROSANG. SCUDS IN PLAcE. JARVIS DRAINING. BED LOCKED IN LOWEST POSITION.
--- NOTE | 2022-03-26 12:15 | PC.NURSE ---
ORDERS FROM DR. MEDRANO AT THIS TIME- REPORT GIVEN ON ITCHING AND PAIN. ONE TIME ORDER FOR DILADUD 1MG IV AND BENADRYL 25MG IV EVERY 6 HOURS PRN. ALL ORDERS PRN.
--- NOTE | 2022-03-26 12:30 | HMH.PHAINT1 ---
Pharmacy Intervention Comments: MEDICATION RECONCILIATION COMPLETED ON PATIENT USING EXTERNAL FILL HISTORY FROM PHARMACY AND SHAHID REPORT. -RAFAEL AGUIAR, MARYD
--- NOTE | 2022-03-26 13:58 | P.CONPHA_ITS ---
[facility] Pharmacy VTE Monitoring Patient Demographics Admission date: 03/26/22 Report Date: 03/26/22 Time: 13:58 Patient Allergies ethinyl estradiol [From SPRINTEC (28)] Allergy (Unknown, Verified 03/26/22 09:10) MOOD CHANGES hydrocodone [HYDROCODONE] Allergy (Unknown, Verified 03/26/22 09:10) I-HIVES norgestimate [From SPRINTEC (28)] Allergy (Unknown, Verified 03/26/22 09:10) MOOD CHANGES Height: 1.63 m Weight: 61.235 kg Current Active Problems (Updated 03/26/22 @ 11:27 by Mike Armendariz MD) Nausea & vomiting (Acute) Abdominal pain (Acute) Fibroid uterus (Acute) Menorrhagia (Acute) Prophylaxis VTE Prophylaxis Ordered?: Yes Types of VTE Prophylaxis: IPCS Thigh High Location of Applied Device: Bilateral Lower Extremeties
[2022-03-26 14:07] LABS: Microscopic,Cath URINE MICROSCOPIC (MICROSCOPIC)
[2022-03-26 14:13] LABS: Appearance,Urine/Cath CLEAR (Clear); Blood, Urine/Cath Negative (Negative); Color,Urine/Cath YELLOW (Yellow); Glucose,Urine/Cath (UA) Negative (Negative); Ketones,Urine/Cath Negative (Negative); Leukocyte Esterase,Cath Negative (Negative); Nitrate,Cath Negative (Negative); Protein,Urine/Cath Negative (Negative); Urobilinogen,Cath 0.2 EU/dl (0.2)
[2022-03-26 14:16] LABS: Bilirubin,Cath 1+ (Negative)
[2022-03-26 14:32] LABS: Bacteria,Urine/Cath TRACE /lpf; Mucus,Urine/Cath Trace /lpf; RBC,Urine/Cath Occasional # /hpf (0-3); Squamous Epithelial Ur./Cath Occasional #/hpf (0-5)
--- NOTE | 2022-03-26 16:00 | PC.NURSE ---
DR DURHAM HERE ROUNDING. NOTIFIED OF PATIENTS PAIN AND ITCHING. ORDERS FOR VISTARIL 25MG PO EVERY 4 HOURS PRN. NO OTHER ORDERS
--- NOTE | 2022-03-26 16:08 | PC.NURSE ---
REASSESSMENT COMPLETED. A/O X4. LUNGS CTA AND BOWEL SOUNDS ACTIVE ALL QUADS. JARVIS IN PLACE. MEDICATED FOR PAIN PER MAR. REPORTS ITCHING IS MAIN CONCERN. REPORTS SOME NAUSEA. IV INFUSING. INCISION COVERED WITH SATURATED SEROSANG. DRESSING. NO VAGINAL BLEEDING. NO EDEMA NOTED. SCUDS IN PLACE. NO NEEDS.
--- NOTE | 2022-03-26 17:50 | PC.NURSE ---
PT VOMITING- RATES PAIN 10/10- CRYING/MOANING - GIVING PATIENT PROMETHAZINE AND MORPHINE GIVEN.WILL SEE HOW PATIENT TOLERATES MEDICATION. CHANGED DRESSING AND CLEANSED PER PROTOCOL. EDUCATION PROVIDED.
[2022-03-26 18:58] LABS: Hematocrit 39.3 % (37.0-47.0); Hemoglobin 12.6 g/dL (12.2-16.2)
--- NOTE | 2022-03-26 19:05 | PC.NURSE ---
Report received by Mayo Li RN
--- NOTE | 2022-03-26 19:08 | PC.NURSE ---
REPORT GIVEN TO Minerva CARNEY RN
[2022-03-27 03:40] VITALS: BP 104/68; PULSE 78; RESP 18; TEMP 37; O2SAT 99
--- NOTE | 2022-03-27 04:16 | PC.NURSE ---
PATIENT HAS RESTED INTERMITTENTLY. PAIN AND NAUSEA CONTROLLED WITH PRN IV AND PO MEDICATIONS. PT ABLE TO MOVE IN THE BED INDEPENDENTLY WITH SPLINTING PILLOW. PT DECLINED TO HAVE JARVIS REMOVED AND AMBULATE TO THE BATHROOM UNTIL SHE HAS SOME BREAKFAST. PT HAS BEEN UNABLE TO EAT THIS SHIFT. SHE HAS TOLERATED WATER BUT HAS NOT FELT UP TO HAVING CLEARS. DIET REMAINS CLEAR LIQUIDS AT THIS TIME. SURGICAL DRESSING REMOVED, CLEANSED AND A NEW DRESSING APPLIED. NO NEW DRAINAGE NOTED TO OLD DRESSING. INCISION C/D/I. IV TO RIGHT HAND INTACT AND INFUSING WELL. LUNGS CTAB AND BOWEL SOUNDS PRESENT X4. PT IS A&O X4. CALL BESS IN REACH. PT SLEEPING AT THIS TIME.
--- NOTE | 2022-03-27 07:15 | PC.NURSE ---
REPORT RECEIVED FROM Minerva CARNEY RN
[2022-03-27 07:30] VITALS: O2SAT 98
[2022-03-27 07:44] VITALS: BP 122/79; PULSE 62; TEMP 36.2
--- NOTE | 2022-03-27 07:44 | EXP.ANES.II ---
[facility] Anesthesia Record Part II Anesthesia Record Part II Discharge Time: 11:57 Destination: Surgical Day Care (OP Surgery) PACU nurse assessment reviewed?: Yes Patient Condition:: Good Anesthesia Complications:: None Swallowing reflex intact?: Yes Cyanosis?: No Blood Pressure: 122/79 Pulse Rate: 62 Temperature: 97.2 F Mental Status: Alert & Oriented Pain level:: 4 Nausea and/or vomitting:: None Intake, IV Amount: 0
[2022-03-27 07:46] LABS: Anion Gap 4.8 mEq/L (5-15); Blood Urea Nitrogen 4 mg/dl (7-17); Calcium 8.3 mg/dl (8.4-10.2); Carbon Dioxide 30 mmol/L (22.0-30.0); Chloride 109 mmol/L (98-107); Creatinine Clearance Estimated 109 mL/min (50-200); Estimated Glomerular Filt Rate 96 ml/min (>60); GFR (African American) 116 ML/MIN (>60); Glucose 92 mg/dl (74-100); Potassium 3.8 mmoL/L (3.5-5.1); Sodium 140 mmol/L (136-145)
[2022-03-27 07:54] LABS: Basophils % 0.4 % (0.1-2.0); Eosinophils % 0.3 % (0.1-12.0); Hematocrit 29.7 % (37.0-47.0); Lymphocytes # 2.1 K/mm3 (0.7-4.5); Lymphocytes % 24.5 % (10-50); Mean Corpuscular HGB Conc 32.3 g/dL (31.8-35.4); Mean Corpuscular Hemoglobin 30.4 pg (27.0-31.2); Mean Platelet Volume 8.9 fl (7.4-10.4); Monocytes # 0.6 K/mm3 (0.1-1.0); Monocytes % 6.6 % (1.7-9.3); Neutrophils # 5.8 K/mm3 (1.8-7.8); Neutrophils % 68.2 % (37.0-80.0); Platelet Count 275 K/mm3 (142-424); Red Blood Count 3.16 M/mm3 (4.20-5.40); Red Cell Distribution Width 13.1 % (11.5-17.5); White Blood Count 8.5 K/mm3 (4.8-10.8)
[2022-03-27 07:57] LABS: Hemoglobin 9.6 g/dL (12.2-16.2)
[2022-03-27 08:00] VITALS: BP 106/62; PULSE 72; RESP 18; TEMP 37.1; O2SAT 98
--- NOTE | 2022-03-27 10:54 | EXP.ACUTE.PN ---
Subjective *Date: 03/27/22 *Time: 10:54 Interval history: She is 1 day postop from a total abdominal hysterectomy and bilateral salpingectomy. She is doing well. She denies any fever or chills. She denies any chest pain or shortness of breath. She denies any calf tenderness. She has not passed any gas but she has eaten. Medical Exam Vital signs and Labs for Last 24 Hours: Temp Pulse Resp BP Pulse Ox 98.8 F 72 18 106/62 L 98 03/27/22 08:00 03/27/22 08:00 03/27/22 08:00 03/27/22 08:00 03/27/22 08:00 Laboratory Results - last 24 hr 03/26/22 10:28: Urine Color Yellow, Urine Appearance Clear, Urine pH 6.0, Ur Specific [place] 1.020, Urine Protein Negative, Urine Glucose (UA) Negative, Urine Ketones Negative, Urine Blood Negative, Urine Nitrate Negative, Urine Bilirubin 1+ A, Urine Urobilinogen 0.2, Ur Leukocyte Esterase Negative, Urine RBC Occasional, Urine WBC None, Ur Squamous Epith Cells Occasional, Urine Bacteria Trace 03/26/22 17:30: Hgb 12.6, Hct 39.3 03/27/22 06:50: WBC 8.5, RBC 3.16 L D, Hgb 9.6 L D, Hct 29.7 L, MCV 94.0, MCH 30.4, MCHC 32.3, RDW 13.1, Plt Count 275, MPV 8.9, Neut % (Auto) 68.2, Lymph % (Auto) 24.5, [place] % (Auto) 6.6, Eos % (Auto) 0.3, Baso % (Auto) 0.4, Neut # (Auto) 5.8, Lymph # (Auto) 2.1, [place] # (Auto) 0.6, Eos # (Auto) 0.0, Baso # (Auto) 0.0 03/27/22 06:50: Sodium 140, Potassium 3.8, Chloride 109 H, Carbon Dioxide 30, Anion Gap 4.8 L, BUN 4 L D, Creatinine 0.70, Estimated Creat Clear 109, Estimated GFR 96, Est GFR ( Amer) 116, Glucose 92, Calcium 8.3 L I & O for Labs for Last 24 Hours: Intake & Output 03/24/22 03/25/22 03/26/22 03/27/22 11:59 11:59 11:59 11:59 Intake Total 0 / 0 Output Total 2850 / 2850 Balance -2850 / -2850 Weight 135 lb 135 lb Constitutional: no acute distress Head: normocephalic Neck: normal inspection Respiratory: normal respiratory effort Cardiac: Reg Rate and Rhythm GI: soft, distention, tenderness or diminished bowel sounds Comments:: Her incision is clean and dry. (female): deferred Extremities: normal inspection, tenderness or calf tenderness Skin: wounds (Her incision is clean and dry.) Assessment and Plan *Assessment and plan (1) Menorrhagia: Status: Acute Qualifiers: Menorrhagia type: with irregular cycle Qualified Code(s): N92.1 - Excessive and frequent menstruation with irregular cycle Category: Medical Code(s): N92.0 - Excessive and frequent menstruation with regular cycle (2) Fibroid uterus: Status: Acute Qualifiers: Uterine leiomyoma location: intramural Qualified Code(s): D25.1 - Intramural leiomyoma of uterus Category: Medical Code(s): D25.9 - Leiomyoma of uterus, unspecified (3) Abdominal pain: Status: Acute Qualifiers: Abdominal location: lower abdomen, unspecified Qualified Code(s): R10.30 - Lower abdominal pain, unspecified Category: Medical Code(s): R10.9 - Unspecified abdominal pain Assessment and plan all Dx Plan of Treatment: She is admitted for a total abdominal hysterectomy and bilateral salpingectomy. She is 1 day postop from her hysterectomy. She is doing very well. Her blood counts are stable. She is voiding adequate urine. We will slow her IV, discontinue her Sands catheter and encourage ambulation. She has eaten breakfast this morning. If she is doing well we will plan to send her home tomorrow. Otherwise we will send her home in 48 hours.
--- NOTE | 2022-03-27 15:45 | PC.NURSE ---
REASSESSMENT DONE AT THIS TIME. NO CHANGES. PATIENT HAS BEEN AMBULATING TO THE BATHROOM AND BACK. MEDICATED PER MAR FOR PAIN. PATIENT STATES PAIN IS IS BETTER TODAY. LUNGS CTA AND BOWELS HYPOACTIVE. LOW TRANSVERSE INCISION NOTED- DRESSING CHANGED AND INCISION CLEANSED. NO S/S OF INFECTION. PT TOLERATED WELL. VOIDING ADEQUATELY. NO EDEMA NOTED. BELLY BINDER IN PLACE. NO CURRENT NEEDS VOICED.
[2022-03-27 16:00] VITALS: BP 91/54; PULSE 62; RESP 18; TEMP 36.7; O2SAT 95
--- NOTE | 2022-03-27 16:15 | PC.NURSE ---
PATIENT WALKING AROUND UNIT. NO DISTRESS.
--- NOTE | 2022-03-27 16:38 | PC.NURSE ---
REPORT GIVEN TO Minerva MARTIN RN
--- NOTE | 2022-03-27 16:58 | PC.NURSE ---
Report received from ANDRIY Resendez.
[2022-03-27 20:00] VITALS: BP 90/58; PULSE 74; RESP 18; TEMP 36.9; O2SAT 100
[2022-03-28 03:33] VITALS: BP 110/58; PULSE 78; RESP 20; TEMP 36.9; O2SAT 100
--- NOTE | 2022-03-28 03:34 | PC.NURSE ---
PT HAS RESTED WELL THIS SHIFT AND PAIN HAS BEEN CONTROLLED WITH PRN MEDICATION. LUNGS CTAB AND BOWELS ACTIVE X4 AND IS PASSING FLATUS WITH NO BM. PT IS A&OX4 AND AMBULATES INDEPENDENTLY TO THE BATHROOM. IV TO RIGHT HAND REMAINS PATENT WITH NO REDNESS. VSS, AFEBRILE. CALL LIGHT IN REACH.
--- NOTE | 2022-03-28 07:05 | PC.NURSE ---
REPORT GIVEN TO Mayo JAMES RN
--- NOTE | 2022-03-28 07:15 | PC.NURSE ---
report received from yolanda nichols rn
[2022-03-28 08:00] VITALS: BP 99/59; PULSE 72; RESP 18; TEMP 36.8; O2SAT 97
--- NOTE | 2022-03-28 08:00 | PC.NURSE ---
ASSESSMENT COMPLETED AT THIS TIME. LUNGS CTA AND BOWELS ACTIVE IN ALL QUADS. PASSING GAS, BUT NO BM. LOW TRANSVERSE INCISION- DRESSING C/D/I. PAIN WELL CONTROLLED WITH PRN MEDICATION. NO EDEMA NOTED. IV SALINE LOCKED. PATIENT VOIDING WELL. NO CURRENT NEEDS.
--- NOTE | 2022-03-28 09:07 | EXP.DC.SUM ---
General Admission date:: 03/26/22 HPI HPI HPI: She is a 32-year-old lady who complains of nausea and vomiting and has lost about 30 pounds recently. She had a CT scan as well as ultrasound that were essentially normal except for the fact that she had an 8 cm fibroid uterus. As result of this she is offered total abdominal hysterectomy and bilateral salpingectomy. Hospital Course Hospital Course Hospital Course: On March 26, 2022 she underwent a total abdominal hysterectomy through a Pfannenstiel incision. She also had a bilateral salpingectomy. She has done well postoperatively and has remained afebrile throughout her hospitalization. She is eating and drinking and ambulating. She is passing gas. She denies any nausea vomiting. She feels better. She did have some itching with Dilaudid and as result of that we changed her to oral tramadol. This seems to be helping with her pain. She is also taking Tylenol and Toradol. She denies any shortness of breath, chest pain or calf tenderness. She will be discharged home to follow-up with me in approximately 2 weeks time. She will continue with her multivitamins with iron. She will keep her incision clean with Hibiclens daily. She was given the usual instructions with respect to limiting her activity, driving and sexual activity. Her condition on discharge is stable and improved. Exam Data for Last 24 hours Vital signs and Labs for Last 24 Hours: Temp Pulse Resp BP Pulse Ox 98.4 F 78 20 110/58 L 100 03/28/22 03:33 03/28/22 03:33 03/28/22 03:33 03/28/22 03:33 03/28/22 03:33 I & O for Last 24 hours: Intake & Output 03/25/22 03/26/22 03/27/22 03/28/22 11:59 11:59 11:59 11:59 Intake Total 0 / 0 Output Total 4250 / 4250 0 / 0 Balance -4250 / -4250 0 / 0 Weight 135 lb 135 lb Constitutional Constitutional: no acute distress *Routine HEENT Exam Head: Present normocephalic *Routine Respiratory Exam Respiratory: Present normal respiratory effort *Routine Abdominal Exam Abdominal: Present soft, normoactive bowel sounds and surgical scars (Her incision is clean and dry.) *Routine Rectal Exam Patient deferred: visual exam *Routine Exam Patient deferred: external exam *Routine Extremities Exam Extremities: Absent tenderness DS: Diagnosis Discharge Diagnosis (1) Menorrhagia: Status: Acute (2) Fibroid uterus: Status: Acute (3) Abdominal pain: Status: Acute Meds Home Medications and Allergies Home Medications Medication Instructions Recorded Confirmed Type bupropion HCl 300 mg 24 hr tablet, 300 mg PO DAILY Depression 03/24/22 03/26/22 History extended release hydroxyzine HCl 25 mg tablet 25 mg PO TIDP PRN Anxiety 03/24/22 03/26/22 History ondansetron 4 mg disintegrating 4 mg PO TIDP PRN Nausea 03/24/22 03/26/22 History tablet ketorolac 10 mg tablet 10 mg PO Q6H #20 tabs 03/28/22 Rx ketorolac 10 mg tablet 10 mg PO Q6H #20 tabs 03/28/22 Rx tramadol 50 mg tablet 50 mg PO Q6H PRN pain #20 tabs 03/28/22 Rx New Prescriptions to Start Prescriptions: Mike Braun ketorolac Marcello,Mike tramadol Mike Armendariz Allergies Allergy/AdvReac Type Severity Reaction Status Date / Time ethinyl estradiol Allergy Unknown MOOD Verified 03/26/22 09:10 [From SPRINTEC (28)] CHANGES hydrocodone [HYDROCODONE] Allergy Unknown I-HIVES Verified 03/26/22 09:10 norgestimate Allergy Unknown MOOD Verified 03/26/22 09:10 [From SPRINTEC (28)] CHANGES Discharge Plan Disposition Patient Disposition: Home, Self-Care Discharge Order Discharge Orders: Discharge Order (Routine); Ordered 03/28/22 Ordered By: Mike Armendariz Follow up Plan Prescriptions/Medication Reconciliation: New ketorolac 10 mg Tablet 10 mg PO Q6H Qty: 20 0RF ketorolac 10 mg tablet 10 mg PO Q6H Qty: 20 0RF tramadol 50 mg tablet
--- NOTE | 2022-03-28 11:00 | PC.NURSE ---
DRESSING REMOVED AT THIS TIME. INCISION CLEANSED AND DRESSING LEFT OFF. EDUCATION PROVIDED TO PATIENT ON WOUND CARE. SHE V/U
== END 2022-03-28 11:21 | disposition home or self-care (01) | DRG 743 ==
LOC: OB 10:50
PROVIDERS: Admitting Provider Nurse Practitioner Obstetrics & Gynecology; PCP Family Medicine; Visit Provider Nurse Practitioner Obstetrics & Gynecology
PROC: 0UT90ZZ Resection of Uterus, Open Approach (ICD-10-PCS; CPT 58150; principal; 2022-03-26 07:30)
DX: D25.9 Leiomyoma of uterus, unspecified (principal); Z87.891 Personal history of nicotine dependence
CPT/HCPCS: 58150; 36415; 80048; 81001; 81025; 84703; 85014; 85018; 85025; 96374; C9290; C9803; J2405; U0003; U0005

== ENCOUNTER 2022-06-25 11:07 | Emergency (ER) | payer BC, SELFPAY ==
[2022-06-25 11:13] VITALS: BP 137/77; PULSE 126; RESP 20; TEMP 36.8; O2SAT 100; BMI 21.4
--- NOTE | 2022-06-25 11:58 | HMH.EDGENADL ---
Discharge Plan Disposition Patient Disposition: Home, Self-Care Condition: Good Chief Complaint: Nausea/Vomiting/Diarrhea Prescriptions Prescriptions: No Action bupropion HCl 300 mg tablet extended release 24 hr 300 mg PO DAILY ondansetron 4 mg tablet,disintegrating 4 mg PO TIDP PRN (Reason: Nausea) hydroxyzine HCl 25 mg tablet 25 mg PO TIDP PRN (Reason: Anxiety) estradiol 2 mg tablet 2 mg PO DAILY Qty: 90 3RF estradiol 0.1 mg/24 hr patch semiweekly 1 patch transdermal ONCE 30 Days Qty: 8 11RF Rx Instructions: Apply 1 patch twice weekly. Referrals Follow up/Referrals: Kelly Westbrook [Primary Care Provider] - See instructions Activity Restrictions/Add. Instructions Additional Instructions/Restrictions: Follow-up with your primary care provider if anxiety persists. Clinical Impressions Clinical Impression: Anxiety attack, Accidental drug ingestion Instructions Patient Instructions: DI for Anxiety -- Adult Discharge ED Provider: Leonard Che General Adult HPI General Chief complaint: Nausea/Vomiting/Diarrhea Stated complaint: sob Time Seen by Provider: 06/25/22 11:45 Mode of Arrival: Ambulatory Source of Information: Patient Limitations: No Limitations Description of Symptoms (Recalled from ER Triage Doc. by RN): pt to ed c/o headache, nausea and anxiety following accidentally taking an extra estrogen pill. pt states she started googling symptoms and has made herself anxious. History of Present Illness HPI narrative: Patient states that she accidentally took 1 extra 2 mg estrogen pill today. She says that she googled it and it said something about 911 and overdose, she says because of that it threw her into a full-blown panic attack and she drove herself to the emergency department. Nurse reports to me that the patient also apparently called 911 but when they arrived she had already left the residence. She says that she has had nausea and vomiting since she took the pill, she has no other symptoms except for the anxiety. She says she was fine until this occurred. States that she has had a previous history of anxiety/panic attacks, but never this bad. Related Data Home Medications Medication Instructions Recorded Confirmed bupropion HCl 300 mg 24 hr tablet, 300 mg PO DAILY Depression 03/24/22 06/04/22 extended release hydroxyzine HCl 25 mg tablet 25 mg PO TIDP PRN Anxiety 03/24/22 06/04/22 ondansetron 4 mg disintegrating 4 mg PO TIDP PRN Nausea 03/24/22 06/04/22 tablet Previous Rx's Medication Instructions Recorded estradiol 2 mg tablet 2 mg PO DAILY #90 tabs 06/04/22 estradiol 0.1 mg/24 hr semiweekly 1 patch transdermal ONCE 1 month 06/24/22 transdermal patch #8 ea Allergies Allergy/AdvReac Type Severity Reaction Status Date / Time ethinyl estradiol Allergy Unknown MOOD Verified 06/04/22 08:26 [From SPRINTEC (28)] CHANGES hydrocodone [HYDROCODONE] Allergy Unknown I-HIVES Verified 06/04/22 08:26 norgestimate Allergy Unknown MOOD Verified 06/04/22 08:26 [From SPRINTEC (28)] CHANGES [facility] Disclaimer: The information contained in this section may have been updated after the patient was seen, as this information can be updated by other users. Medical History (Updated 06/25/22 @ 12:04 by Leonard Che MD) Abdominal pain Allergic reaction Ankle sprain and strain Anxiety and depression Anxiety attack Asthma Colitis Constipation Encounter for IUD insertion Encounter for Routine Gynecological Examination Fibroid uterus History of fracture of nasal bone Lumbar pain Menorrhagia Nasal fracture Nausea & vomiting Sinusitis Strain of lumbar region URI (upper respiratory infection) Vomiting and diarrhea Surgical History (Updated 06/04/22 @ 08:41 by GARFIELD Stringer) History of History of tubal ligation Status post partial hysterectomy Family History Other N
--- NOTE | 2022-06-25 11:59 | PC.NURSE ---
spoke with poison control who states pt may experience GI upset but no danger in the dosing she took at home.
[2022-06-25 12:11] VITALS: BP 129/70; PULSE 110; RESP 20; TEMP 36.8; O2SAT 100
== END 2022-06-25 12:13 | disposition home or self-care (01) ==
PROVIDERS: Emergency Provider Emergency Medicine; PCP Family Medicine
DX: F41.9 Anxiety disorder, unspecified (principal); T38.5X1A Poisoning by other estrogens and progestogens, accidental (unintentional), initial encounter; Z79.890 Hormone replacement therapy; Z88.8 Allergy status to other drugs, medicaments and biological substances; F32.9 Major depressive disorder, single episode, unspecified; J45.909 Unspecified asthma, uncomplicated
CPT/HCPCS: 99283

== ENCOUNTER 2024-10-05 11:36 | Emergency (ER) | payer OTHER, SELFPAY ==
[2024-10-05 11:53] VITALS: BP 129/94; PULSE 66; RESP 18; TEMP 36.8; O2SAT 100; BMI 20.5
[2024-10-05] MEDS: IBUPROFEN 400 MG TABLET 800 MG PO (12:03)
[2024-10-05] MEDS: ACETAMINOPHEN 500MG TAB 1000 MG PO (12:03)
[2024-10-05 12:07] LABS: Influenza A, PCR Not Detected (NotDetected); Influenza B, PCR Not Detected (NotDetected)
[2024-10-05 12:42] LABS: Coronavirus 19, PCR Detected (NotDetected)
--- NOTE | 2024-10-05 12:55 | ED_ITS ---
Discharge Plan Disposition Patient Disposition: Home, Self-Care Condition: Good Prescriptions Prescriptions: No Action escitalopram oxalate [Lexapro] 10 mg tablet 10 mg PO DAILY Qty: 30 5RF Referrals Follow up/Referrals: Kelly Westbrook [Primary Care Provider] - See instructions Activity Restrictions/Add. Instructions Additional Instructions/Restrictions: Return to the emergency department any worsening signs or symptoms, I recommend good intake with oral fluids and solids, any [id number] cold and flu medications ibuprofen and Tylenol can be used for symptomatic relief follow-up with your family doctor. Clinical Impressions Clinical Impression: COVID-19 Stand Alone Forms Stand Alone Forms: Work/School Release Instructions Patient Instructions: COVID-19 Print Language Print Language: Syriac Discharge ED Provider: Ry Dewitt Adult HPI <RACHELLE Serrato - Last Filed: 10/05/24 13:00> General Chief complaint: Upper Respiratory Infection Stated complaint: H/A, B/A, low fever, chills Time Seen by Provider: 10/05/24 12:45 Mode of Arrival: Ambulatory Source of Information: Patient Description of Symptoms (Recalled from ER Triage Doc. by RN): Headache, fever, dry cough started on thursday History of Present Illness HPI narrative: 34-year-old female presents to the emergency department with a 3 to 4-day history of fever chills nonproductive cough cough congestion sore throat, body aches fatigue, denies any chest pain denies any shortness of breath, admits to nausea no vomiting no abdominal pain no constipation no diarrhea no urinary type symptomatology or vaginal type symptomatology, patient has no real relevant past medical history takes no other medications at home, no history of substance use. Initial triage vitals grossly unremarkable, patient endorses no recent sick contacts. Related Data Previous Rx's ?Medication ?Instructions ?Recorded escitalopram oxalate 10 mg tablet 10 mg PO DAILY #30 tabs 11/24/22 (Lexapro) Allergies Allergy/AdvReac Type Severity Reaction Status Date / Time ethinyl estradiol (From Allergy Unknown MOOD Verified 11/24/22 10:04 SPRINTEC (28)) CHANGES hydrocodone (HYDROCODONE) Allergy Unknown I-HIVES Verified 11/24/22 10:04 norgestimate (From SPRINTEC Allergy Unknown MOOD Verified 11/24/22 10:04 (28)) CHANGES PFSH <RACHELLE Serrato - Last Filed: 10/05/24 13:00> [facility] Disclaimer: The information contained in this section may have been updated after the patient was seen, as this information can be updated by other users. Medical History Anxiety and depression Anxiety attack Asthma Colitis Lumbar pain Nasal fracture Surgical History History of History of tubal ligation Status post partial hysterectomy Family History Other No significant family history Social History Smoking Status: Former smoker tobacco type: cigarettes packs per day: 1 alcohol intake: never substance use type: denies use current occupational status: other Travel in the last 8 weeks: None Have you lived/traveled outside [place] in past 30 days?: No Contact w/someone who lives/traveled outside [place] past 30 days?: No Exposure to someone with infectious disease in past 14 days?: No Do you have a fever (greater than 100.4 F or 38 C)?: No Have you tested positive for COVID-19: No Exposed to someone with COVID-19 in past 14 days?: No Do you have a sore throat?: No Do you have a cough?: No Do you have any weakness?: No Do you have any diarrhea?: No Are you experiencing any unusual bleeding?: No Do you have any muscle aches/pain?: No Do you have any abdominal pain?: No Are you experiencing loss of taste or smell?: No Other Medical History Have you received the Flu Vaccine for this season: No Have you received the Pneumonia Vaccine: No <RACHELLE Serrato - Last Filed: 10/05/24 13:00> ROS Obtained: Yes All systems reviewed & no additional complaints except as documented Physical Exam <RACHELLE Serrato - Last Filed: 10/05/24 13:00> General General appearance: alert and in no apparent distress Head Head exam: atraumatic and normocephalic Eye Eye exam: Present PERRL and EOMI ENT ENT exam: Present mucous membranes moist Neck Neck exam: Present normal inspection Chest Chest inspection: Present normal inspection and symmetric chest wall rise Respiratory Respiratory exam: Present normal lung sounds bilaterally; Absent respiratory distress Cardiovascular Cardiovascular exam: Present regular rate and normal rhythm Abdominal Exam Abdominal exam: Present soft; Absent tenderness Extremities Exam Extremities exam: Present normal inspection Neurological Exam Neurological exam: Present alert and oriented X3 Psychiatric Psychiatric exam: Present normal affect Skin Skin exam: Present warm and dry Medical Decision Making <RACHELLE Serrato - Last Filed: 10/05/24 13:00> Medical Records Medical records reviewed: Yes I reviewed the patient's medical records. Screening: Per USPSTF and CDC recommendations, given the prevalence of disease in our region, it is our hospital?s policy to screen for HIV and viral Hepatitis for all patients aged 18 and over and those with ongoing risk factors. Wilian Inquiry Pt receiving controlled substance: No Wilian was queried for this patient: No Vital Signs: 10/05/24 11:53 10/05/24 13:06 Temperature 98.3 F 98.0 F Temperature Source Oral Pulse Rate 60 Pulse Rate [Radial] 66 Respiratory Rate 18 16 Blood Pressure 119/68 Blood Pressure [Right Arm] 129/94 H Blood Pressure Mean [Right Arm] 105 Blood Pressure Source [Right Arm] Automatic Cuff Blood Pressure Position [Right Arm] Sitting 02 Sat by Pulse Oximetry 100 Lab Data Lab Results 10/05/24 11:57: SARS-CoV-2 (PCR) Detected A, Influenza A Untype (PCR) Not detected, Influenza Type B (PCR) Not detected Orders (Tests/Meds): ED MEDICATIONS Discontinued Medications Generic Name Dose Route Start Last Admin Trade Name Freq PRN Reason Stop Dose Admin Acetaminophen 1,000 mg 10/05/24 11:58 10/05/24 12:03 Acetaminophen 500mg Tab PO 10/05/24 11:59 1,000 mg ONCE ONE Administration Ibuprofen 800 mg 10/05/24 11:58 10/05/24 12:03 Ibuprofen 400 Mg Tablet PO 10/05/24 11:59 800 mg ONCE ONE Administration ORDERS Category Date Time Status Rapid PCR Covid and Flu A/B Stat Lab 10/05/24 11:57 Completed Medical Decision Narrative: 4-year-old female presents the emergency department with URI type symptomatology, differential diagnose include but not limited to, acute bronchitis, viral URI, sinusitis, COVID-19, influenza. Will obtain rapid antigen swabs for influenza and COVID-19. Patient is positive for COVID-19, negative for influenza A and B. Offered antiemetics to the patient for nausea, and offered laboratory studies for further workup, she denied at this time would like to pursue outpatient treatm ent/care. Shared decision-making was utilized, recommend [id number] cold and flu medications, ibuprofen and Tylenol for other symptomatic relief, recommend good p.o. intake with fluids and solids. Patient follow-up with PCP as directed and return to the emergency department with any worsening signs or symptoms. <Ry Dewitt MD - Last Filed: 10/05/24 16:53> Vital Signs: 10/05/24 11:53 10/05/24 13:06 Temperature 98.3 F 98.0 F Temperature Source Oral Pulse Rate 60 Pulse Rate [Radial] 66 Respiratory Rate 18 16 Blood Pressure 119/68 Blood Pressure [Right Arm] 129/94 H Blood Pressure Mean [Right Arm] 105 Blood Pressure Source [Right Arm] Automatic Cuff Blood Pressure Position [Right Arm] Sitting 02 Sat by Pulse Oximetry 100 Lab Data Lab Results 10/05/24 11:57: SARS-CoV-2 (PCR) Detected A, Influenza A Untype (PCR) Not detected, Influenza Type B (PCR) Not detected Orders (Tests/Meds): ED MEDICATIONS Discontinued Medications Generic Name Dose Route Start Last Admin Trade Name Irasema PRN Reason Stop Dose Admin Acetaminophen 1,000 mg 10/05/24 11:58 10/05/24 12:03 Acetaminophen 500mg Tab PO 10/05/24 11:59 1,000 mg ONCE ONE Administration Ibuprofen 800 mg 10/05/24 11:58 10/05/24 12:03 Ibuprofen 400 Mg Tablet PO 10/05/24 11:59 800 mg ONCE ONE Administration ORDERS Category Date Time Status Rapid PCR Covid and Flu A/B Stat Lab 10/05/24 11:57 Completed Medical Decision Narrative: 4-year-old female presents the emergency department with URI type symptomatology, differential diagnose include but not limited to, acute bronchitis, viral URI, sinusitis, COVID-19, influenza. Will obtain rapid antigen swabs for influenza and COVID-19. Patient is positive for COVID-19, negative for influenza A and B. Offered antiemetics to the patient for nausea, and offered laboratory studies for further workup, she denied at this time would like to pursue outpatient treatment/care. Shared decision-making was utilized, recommend [id number] cold and flu medications, ibuprofen and Tylenol for other symptomatic relief, recommend good p.o. intake with fluids and solids. Patient follow-up with PCP as directed and return to the emergency department with any worsening signs or symptoms. I was consulted by the ASHLEY, and we discussed the complexity of the problems being addressed. I approve the treatment and management plan for this patient's care in the emergency department, thus performing a substantive portion of the medical decision making. Ry Dewitt MD Critical Care <RACHELLE Serrato - Last Filed: 10/05/24 13:00> Critical Care Time Critical Care Time: No
[2024-10-05 13:06] VITALS: BP 119/68; PULSE 60; RESP 16; TEMP 36.7; O2SAT 99
== END 2024-10-05 13:07 | disposition home or self-care (01) ==
PROVIDERS: Emergency Provider Student in an Organized Health Care Education/Training Program; PCP Family Medicine
DX: U07.1 COVID-19 (principal); R51.9 Headache, unspecified; R50.9 Fever, unspecified; R05.9 Cough, unspecified; R09.81 Nasal congestion; M79.10 Myalgia, unspecified site; R53.83 Other fatigue
CPT/HCPCS: 87636; 99283